=== PATIENT | male | born 1965 | race Caucasian/White ===

== ENCOUNTER 2017-04-01 11:03 | Emergency (ER) | payer BC ==
[~2017-04-01] VITALS: Ht 172.7 cm; Wt 118.2 kg
[2017-04-01 11:18] LABS: GLUCOSE,POINT OF CARE 235 MG/DL (70-110)
[2017-04-01] MEDS ORDERED: METF500T4 PO (11:18)
[2017-04-01] MEDS ORDERED: KETOROLAC TROMETHAMINE 60 MG/2 ML VIAL IM ONE (12:15)
[2017-04-01 13:10] VITALS: BP 147/86
== END 2017-04-01 13:12 | disposition home or self-care (01) ==
LOC: EMS 11:05 → EDBD 11:05 → EMS 13:12
DX: S33.5XXA Sprain of ligaments of lumbar spine, initial encounter (principal); E11.9 Type 2 diabetes mellitus without complications; Z88.0 Allergy status to penicillin; X58.XXXA Exposure to other specified factors, initial encounter; Y93.89 Activity, other specified; Y92.89 Other specified places as the place of occurrence of the external cause; Y99.8 Other external cause status
CPT/HCPCS: 82962; 96372; 99283; J1885